=== PATIENT | female | born 1970 | race Caucasian/White ===

== ENCOUNTER 2017-08-16 05:26 | Emergency (ER) | payer OTHER, MEDICAID ==
[2017-08-16] MEDS ORDERED: GEODON INJ IM ONE ×2 (05:29→05:35)
--- NOTE | 2017-08-16 05:45 | DR.GENAD ---
HPI - Complaint/Symptoms Chief Complaint Doctors Comments: Patient was brought to the ED via private vehicle because she became combative and hostile while at home. She is a hospice patient with brain cancer with metastisis. She was diagnosed 12/06/16 with cancer, she is a DNR status. Patient was brought to the ER because the nurse stated that patient started destroying the house, throwing objects and threatened to kill the nurse taking care of her. She has become paranoid and destructive. <SHEBA LOPEZ - Last Filed: 08/16/17 06:05> ROS - Review of Systems Constitutional: No Symptoms Reported Eyes: No Symptoms Reported ENTM: No Symptoms Reported Respiratoy: No Symptoms Reported Cardiovascular: No Symptoms Reported Gastrointestinal/Abdominal: No Symptoms Reported Genitourinary: No Symptoms Reported Neurological: Emotional Problems Musculoskeletal: No Symptoms Reported Hematologic/Lymphatic: No Symptoms Reported Endocrine: No Symptoms Reported Psychiatric: No Symptoms Reported All Other Systems: Reviewed and Negative <SHEBA LOPEZ - Last Filed: 08/16/17 06:05> PE - General General Appearance: Alert, In No Apparent Distress - Head Head Exam: Normal Inspection, Atraumatic - Eyes Eye exam: Normal Appearance, PERRL - ENT ENT Exam: Normal Exam External Ear Exam: Normal External Inspection TM/Canal Exam: Bilateral Normal Nose Exam: Normal Nose Exam Mouth Exam: Normal Inspection Throat Exam: Normal Inspection - Neck Neck Exam: Normal Inspection - Chest Chest Inspection: Normal Inspection - Respiratory Respiratory Exam: Normal Lung Sounds Bilat Respiratory Exam: Bilateral Clear to Auscultation - Cardiovascular Cardiovascular Exam: Regular Rate - Abdominal Exam Abdominal Exam: Normal Inspection Abdominal Tenderness: negative: RUQ, RLQ, LUQ, LLQ, Epigastrium, Suprapubic, Diffuse, Mild, Moderate, Severe, Other - Extremities Extremities Exam: Normal Inspection - Back Back Exam: Normal Inspection - Neurologic Neurological Exam: Other (aggitated but cooperative) - Psychiatric Psychiatric Exam: Agitated <SHEBA LOPEZ - Last Filed: 08/16/17 06:05> - Vital Signs Vitals: Temperature 98.0 F Pulse Rate 120 Respiratory Rate 22 Blood Pressure 128/73 O2 Sat by Pulse Oximetry 93 ROR - Labs Reviewed Result Diagrams: 08/16/17 06:03 08/16/17 06:03 <DWAYNE SANCHEZ - Last Filed: 08/16/17 10:58> - Labs Reviewed Laboratory: WBC 11.4 X10^3/uL (3.6-10.0) H 08/16/17 06:03 RBC 3.01 X10^6/uL (3.5-5.4) L 08/16/17 06:03 Hgb 9.1 g/dL (12.0-16.0) L 08/16/17 06:03 Hct 27.6 % (36.0-47.0) L 08/16/17 06:03 MCV 91.6 fL (80.0-100.0) 08/16/17 06:03 MCH 30.1 pg (27.0-34.0) 08/16/17 06:03 MCHC 32.9 g/dL (33.0-35.0) L 08/16/17 06:03 RDW 18.8 % (11.6-16.5) H 08/16/17 06:03 Plt Count 137 X10^3/uL (150.0-450.0) L 08/16/17 06:03 Plt Count Comment Adequate (ADEQUATE) 08/16/17 06:03 MPV 9.9 fL (7.4-11.0) 08/16/17 06:03 Neut % (Auto) 87.4 % (42.0-75.0) H 08/16/17 06:03 Lymph % (Auto) 6.7 % (21.0-51.0) L 08/16/17 06:03 Wirt % (Auto) 4.9 % (0.0-13.0) 08/16/17 06:03 Eos % (Auto) 0.1 % (0.9-2.9) L 08/16/17 06:03 Baso % (Auto) 0.9 % (0.2-1.0) 08/16/17 06:03 Neut # (Auto) 9.9 x10^3/uL (2.2-4.8) H 08/16/17 06:03 Lymph # (Auto) 0.8 X10^3/uL (1.3-2.9) L 08/16/17 06:03 Wirt # (Auto) 0.6 x10^3/uL (0.3-0.8) 08/16/17 06:03 Eos # (Auto) 0.0 x10^3/uL (0.0-0.2) 08/16/17 06:03 Baso # (Auto) 0.1 X10^3/uL (0.0-0.1) 08/16/17 06:03 Absolute Nucleated RBC 0.4 /100WBC 08/16/17 06:03 Total Counted 100 08/16/17 06:03 Neutrophils % (Manual) 86 % (39-76) H 08/16/17 06:03 Band Neutrophils % 2 % (0-10) 08/16/17 06:03 Lymphocytes % (Manual) 10 % (13-43) L 08/16/17 06:03 Monocytes % (Manual) 2 % (4-9) L 08/16/17 06:03 Plt Morphology Comment Normal (NORMAL) 08/16/17 06:03 RBC Morphology Normal (NORMAL) 08/16/17 06:03 Sodium 138 mmol/L (136-145) 08/16/17 06:03 Corrected Sodium TNP 08/16/17 06:03 Potassium 3.2 mmol/L (3.5-5.1) L 08/16/17 06:03 Chloride 100 mmol/L (98-107) 08/16/17 06:03 Carbon Dioxide 28.1 mmol/L (21-32) 08/16/17 06:03 BUN 13 mg/dL (7-18) 08/16/17 06:03 Creatinine 0.45 mg/dL (0.55-1.02) L 08/16/17 06:03 Est GFR (MDRD) Af Amer > 60 (>60) 08/16/17 06:03 Est GFR (MDRD) Non-Af > 60 (>60) 08/16/17 06:03 Glucose 83 mg/dL (65-99) 08/16/17 06:03 Calcium 8.5 mg/dL (8.5-10.1) 08/16/17 06:03 Corrected Calcium 10.2 mg/dL (8.5-10.1) H 08/16/17 06:03 Magnesium 2.1 mg/dL (1.7-2.9) 08/16/17 06:03 Total Bilirubin 0.50 mg/dL (0.2-1.0) 08/16/17 06:03 AST 28 Units/L (15-37) 08/16/17 06:03 ALT 24 Units/L (12-78) 08/16/17 06:03 Alkaline Phosphatase 106 Units/L (46-116) 08/16/17 06:03 Creatine Kinase 31 Units/L (26-192) 08/16/17 06:03 CK-MB (CK-2) 1.0 ng/mL (0-4.0) 08/16/17 06:03 CK/CKMB % Calc 3.2 % (<4) 08/16/17 06:03 Troponin I < 0.02 ng/mL (0-1.5) 08/16/17 06:03 Total Protein 6.6 g/dL (6.4-8.2) 08/16/17 06:03 Albumin 1.9 g/dL (3.4-5.0) L 08/16/17 06:03 Globulin 4.7 g/dL (2.5-4.5) H 08/16/17 06:03 Albumin/Globulin Ratio 0.4 Ratio (1.1-2.1) L 08/16/17 06:03 Salicylates 4.0 mg/dL (2.8-20) 08/16/17 06:03 Acetaminophen 0.0 ug/mL (10-30) L 08/16/17 06:03 <SHEBA LOPEZ - Last Filed: 08/16/17 06:05> <DWAYNE SANCHEZ - Last Filed: 08/16/17 10:58> - Diagnosis Discharge Problem: Agitation requiring sedation protocol - Discharge Plan Condition: Stable - Follow ups/Referrals Follow ups/Referrals: [facility],None [Primary Care Provider] - 3 days - Instructions Additional Instructions: RETURN TO ED IF WORSE.
[2017-08-16 05:59] VITALS: BMI 25.7
[2017-08-16 06:13] LABS: BASOPHILS # (AUTO) 0.1 X10^3/uL (0.0-0.1); BASOPHILS % (AUTO) 0.9 % (0.2-1.0); EOSINOPHILS % (AUTO) 0.1 % (0.9-2.9); HEMATOCRIT 27.6 % (36.0-47.0); HEMOGLOBIN 9.1 g/dL (12.0-16.0); LYMPHOCYTES # (AUTO) 0.8 X10^3/uL (1.3-2.9); LYMPHOCYTES % (AUTO) 6.7 % (21.0-51.0); MEAN CORPUSCULAR HEMOGLOBIN 30.1 pg (27.0-34.0); MEAN CORPUSCULAR HGB CONC 32.9 g/dL (33.0-35.0); MEAN CORPUSCULAR VOLUME 91.6 fL (80.0-100.0); MEAN PLATELET VOLUME 9.9 fL (7.4-11.0); MONOCYTES # (AUTO) 0.6 x10^3/uL (0.3-0.8); MONOCYTES % (AUTO) 4.9 % (0.0-13.0); NEUTROPHILS # (AUTO) 9.9 x10^3/uL (2.2-4.8); NEUTROPHILS % (AUTO) 87.4 % (42.0-75.0); PLATELET COUNT 137 X10^3/uL (150.0-450.0); RED BLOOD COUNT 3.01 X10^6/uL (3.5-5.4); RED CELL DISTRIBUTION WIDTH 18.8 % (11.6-16.5); WHITE BLOOD COUNT 11.4 X10^3/uL (3.6-10.0)
[2017-08-16 06:30] LABS: BLOOD UREA NITROGEN 13 mg/dL (7-18); CALCIUM 8.5 mg/dL (8.5-10.1); CARBON DIOXIDE 28.1 mmol/L (21-32); CHLORIDE 100 mmol/L (98-107); CREATININE 0.45 mg/dL (0.55-1.02); SODIUM 138 mmol/L (136-145); TROPONIN I < 0.02 ng/mL (0-1.5); eGFR BLACK RACES > 60 (>60); eGFR NON BLACK RACES > 60 (>60)
[2017-08-16 06:34] LABS: ALANINE AMINOTRANSFERASE 24 Units/L (12-78); ALBUMIN 1.9 g/dL (3.4-5.0); ALKALINE PHOSPHATASE 106 Units/L (46-116); ASPARTATE AMINO TRANSFERASE 28 Units/L (15-37); CKMB % 3.2 % (<4); COR CA(FOR HYPOALB) 10.2 mg/dL (8.5-10.1); CREATINE KINASE 31 Units/L (26-192); MAGNESIUM 2.1 mg/dL (1.7-2.9); TOTAL PROTEIN 6.6 g/dL (6.4-8.2)
[2017-08-16 06:43] LABS: BAND NEUTROPHILS % 2 % (0-10); PLATELET MORPHOLOGY COMMENT NORMAL (NORMAL)
--- NOTE | 2017-08-16 07:19 | RAD ---
Exam: Chest, frontal view History: Brain cancer with mets. Comparison: None Findings: Heart size and pulmonary vasculature within normal limits. Left hemidiaphragm is elevated. An ill-def ined nodular opacity is seen in the left mid lung. This measures approximately 1 cm in size. Remainde r the lungs are clear with no infiltrate or significant effusion on either side. Surgical fusion hard byrnes is seen in the lower cervical spine. Impression: 1. Ill-defined nodular opacity in the left mid lung. In a patient with known malignancy, possibility of metastatic disease should be considered. Further evaluation with chest CT is warranted. 2. No acute cardiopulmonary abnormality is seen on this exam. Reported By:
[2017-08-16 11:07] VITALS: BP 115/78
== END 2017-08-16 11:08 | disposition home or self-care (01) ==
LOC: ER 05:26
DX: R45.1 Restlessness and agitation (principal); F13.20 Sedative, hypnotic or anxiolytic dependence, uncomplicated
CPT/HCPCS: 36415; 71045; 80053; 80307; 82550; 82553; 83735; 84484; 85025; 93005; 93010; 96372; 99282; 99285; G6038; G6039; J3486